=== PATIENT | female | born 1960 | race Caucasian/White ===

== ENCOUNTER 2025-06-10 09:46 | Outpatient (CLI) | payer BC | END 2025-06-10 09:47 | disposition home or self-care (01) | LOC: CSHSLEEP 09:46 | PROVIDERS: ATTEND Internal Medicine Critical Care Medicine | DX: G47.33 Obstructive sleep apnea (adult) (pediatric) (principal); F32.A Depression, unspecified; I10 Essential (primary) hypertension | CPT/HCPCS: 95800 ==